=== PATIENT | female | born 1970 | race Caucasian/White ===

== ENCOUNTER 2024-06-22 01:00 | Emergency (ER) | payer MEDICARE ==
[~2024-06-22] VITALS: Ht 167.6 cm; Wt 126.4 kg
[2024-06-22 01:43] LABS: BASO # 0.04 K/mm3 (0.02-0.10); EOS # 0.26 K/mm3 (0.04-0.40); EOS % 2.5 % (1.0-5.0); HEMATOCRIT 44.8 % (37.0-47.0); HEMOGLOBIN 14.4 g/dL (12.5-16.0); LYMPH# 2.98 K/mm3 (1.50-4.00); MEAN CELL VOLUME 91 fl (78-100); MEAN CORPUSCULAR HEMOGLOBIN 29 pg (27-31); MEAN CORPUSCULAR HGB CONC 32 g/dL (33-37); NEU # 6.11 K/mm3 (1.40-6.50); PLATELET COUNT 211 K/mm3 (130-400); RED BLOOD COUNT 4.95 M/mm3 (4.10-5.30); RED CELL DISTRIBUTION WIDTH 14.1 % (11.5-14.5); WHITE BLOOD COUNT 10.3 K/mm3 (4.8-10.8)
[2024-06-22 01:53] LABS: CALCIUM 9.4 mg/dL (8.3-10.5)
[2024-06-22 01:54] LABS: TOTAL PROTEIN 7.3 g/dL (6.4-8.3)
[2024-06-22 01:56] LABS: TOTAL BILIRUBIN 0.4 mg/dL (0.2-1.2)
[2024-06-22 02:16] LABS: D-DIMER 0.67 mg/L FEU (0.15-0.50)
[2024-06-22] MEDS ORDERED: Iohexol 350 - 100 ML VIAL IV ONE (02:51)
[2024-06-22 04:29] VITALS: BP 128/72
== END 2024-06-22 04:29 | disposition home or self-care (01) ==
LOC: ED 01:00
PROVIDERS: Nurse Practitioner Family
DX: R07.89 Other chest pain (principal)
CPT/HCPCS: Q9967